=== PATIENT | male | born 1970 | race Caucasian/White ===

== ENCOUNTER 2022-08-31 12:08 | Outpatient (CLI) | payer BC ==
--- NOTE | 2022-09-01 16:24 | XRAY Report ---
PROCEDURE: Lumbar Spine 2 View INDICATIONS: PARESTHESIA OF FOOT TECHNIQUE: 3 views of the lumbar spine were acquired. COMPARISON: None. FINDINGS: Bones: 5 [id number] vertebrae are present. Mild right convexity curvature centered at L3. 3 mm retrolisthesis L3 on L4. Mild multilevel degenerative changes with disc height loss, endplate spurrin g, and facet arthropathy. No vertebral body compression fractures. No suspicious bony lesions. Soft tissues: Overlying bowel gas pattern is normal. No suspicious soft tissue calcifications. IMPRESSION: Mild multilevel degenerative changes of the lumbar spine. Reviewed by: Andrea Avila MD on 09/01/2022 4:22 PM PST Approved by: Andrea Avila MD on 09/01/2022 4:22 PM PST Station ID: [id number]
== END 2022-08-31 12:10 | disposition home or self-care (01) ==
LOC: DI.S 12:08
PROVIDERS: ATTEND Physician Assistant
DX: M51.36 Other intervertebral disc degeneration, lumbar region (principal); M47.816 Spondylosis without myelopathy or radiculopathy, lumbar region